=== PATIENT | female | born 1950 | race Caucasian/White ===

== ENCOUNTER → 2018-08-10 | Emergency (ER) | payer OTHER ==
[~2018-08-10] VITALS: Ht 160 cm; Wt 72.6 kg
[~2018-08-10] MED LIST: CADUET 5 MG/401 TAB PO; LABETALOL HCL100 MG; LISINOPRIL40 MG; PERCOCET 10-3251 TAB; PROVASTATIN; SYNTHROID50 MCG
== END | disposition home or self-care (01) ==
LOC: ER 17:10
DX: K57.90 Diverticulosis of intestine, part unspecified, without perforation or abscess without bleeding (principal); R10.32 Left lower quadrant pain